=== PATIENT | male | born 1955 | race African-American/Black ===

== ENCOUNTER 2019-05-08 15:04 | Inpatient (IN) ==
--- NOTE | 2019-05-08 15:18 | PROVIDER DOCUMENTATION ---
HPI-Abdominal Pain/GI Problem - General Chief Complaint: Abdominal Pain Stated Complaint: CONSTIPATED OR BAD GAS Time Seen by Provider: 05/08/19 15:16 Source: patient Allergies/Adverse Reactions: Patient Allergies Allergy/AdvReac Type Severity Reaction Status Date / Time No Known Allergies Allergy Verified 05/08/19 15:36 Home Medications: Home Medication List Medication Instructions Recorded Confirmed Last Taken Type Furosemide [Lasix] 40 mg PO DAILY #30 tablet 03/23/14 05/08/19 04/15/18 Rx Carvedilol [Coreg] 25 mg PO BID #180 tablet 04/10/16 05/08/19 04/15/18 Rx Amlodipine [Norvasc] 15 mg PO DAILY 02/09/17 05/08/19 04/15/18 History Hydralazine [Apresoline] 50 mg PO DAILY 02/09/17 05/08/19 04/15/18 History - History of Present Illness-ABD Nature of Presenting Problems: Patient is a 63 yobm who complains of LLQ pain x 3-4 hours. Denies n/v/d, fever, or any other complaints. He is non-toxic in appearance. Review of Systems - Adult - REVIEW OF SYSTEMS - ADULT Constitutional: reports: no symptoms reported. denies: chills, fever Eyes: reports: no symptoms reported Ears, Nose, Mouth & Throat: reports: no symptoms reported Cardiovascular: reports: no symptoms reported Respiratory: reports: no symptoms reported Gastrointestinal: reports: see HPI Genitourinary: reports: no symptoms reported Musculoskeletal: reports: no symptoms reported Integumentary: reports: no symptoms reported Neurological: reports: no symptoms reported Psychiatric: reports: no symptoms reported Endocrine: reports: no symptoms reported Hematologic/Lymphatic: reports: no symptoms reported Allergic/Immunologic: reports: no symptoms reported All Other Systems: Reviewed and Negative Past History - Adult - PAST MEDICAL HISTORY-ADULT Review of Records: reports: Old Records Reviewed, Nursing Assessment Review, Medications Reviewed, Social history reviewed & non-contributory. Major Childhood Illnesses: reports: denies history Cardiovascular: reports: CAD, CHF, pacemaker Respiratory: reports: denies history Gastrointestinal: reports: denies history Obstetrical/Gynecological: reports: denies history Genitourinary: reports: denies history Musculoskeletal: reports: intervertebral disc disease Neurological: reports: CVA Endocrine/Immune: reports: denies history Other Conditions: reports: denies history - PRIOR SURGERIES/PROCEDURES Surgical/Procedure History: reports: cholecystectomy, pacemaker (AICD), back/neck - IMMUNIZATION STATUS Childhood Immunizations: See Nurse Assessment Flu Vaccine: See Nurse Assessment - FAMILY HISTORY Family History: reviewed, not pertinent - SOCIAL HISTORY Smoking: cigarettes, less than 1 pack/day Physical Exam-General - PHYSICAL EXAM-ADULT Initial Vital Signs Reviewed: Yes - CONSTITUTIONAL General Appearance: alert, mild distress. negative: lethargic, slow to respond - EYES Eyes: PERRL/EOMI - HEAD, EARS, NOSE, MOUTH & THROAT HENMT: normocephalic/atraumatic - NECK Neck: full range of motion, supple, normal inspection - RESPIRATORY Respiratory: chest non-tender, lungs clear, normal breath sounds, no pleuratic chest pain, no respiratory distress, no accessory muscle use - CARDIOVASCULAR Cardiovascular: regular rate, rhythm, no gallop, no murmur - GASTROINTESTINAL (ABDOMEN) Abdominal Exam: normal bowel sounds, soft, no organomegaly, no pulsatile mass, guarding (LLQ), tenderness (LLQ). negative: distended, rigid, rebound, hernia, mass - MUSCULOSKELETAL Back Exam: normal inspection, no CVA tenderness Extremity: normal range of motion, non-tender, normal gait, normal inspection - SKIN Integumentary: normal color, warm/dry. negative: cyanosis, diaphoresis, jaundice, mottled, pallor - NEUROLOGIC Neurologic: grossly normal, no motor/sensory deficits - PSYCHIATRIC Psych/Mental Status: normal mood/affect, normal thought content, normal thought process, oriented x 3 Progress - PLAN OF CARE/RESULTS Progress/Plan/Lab Results: Vital Signs - 8 hr 05/08/19 15:13 Temperature 96.0 F L Pulse Rate 56 L Respiratory Rate 18 Blood Pressure 167/103 O2 Sat by Pulse Oximetry 98 Result Diagrams: 05/08/19 15:51 05/08/19 15:51 - REASSESSMENT Reassessment #1 Time Reassessed: 18:08 Status: other (Waiting on CT report to dispo. Radiology inquiry made.) Reassessment #2 Time Reassessed: 18:40 Status: other (Reassessed pt, he is now diaphoretic and states he feels nauseated. States pain has improved. Discussed case with Dr. Canela who recommends HPS admission. Admitting HPS paged.) Reassessment #3 Time Reassessed: 19:14 Status: other (Urology paged per recommendation of Dr. Franklin.) - CT/MRI 1 CT Study: Abdomen, Pelvis ([facility] - [address], [address], [place] [address] [facility] - [address] , [place] [address] Department of Imaging Patient: POORNIMA BELTRÁN Date: 05/08/19#: [id number] : 5ADM Status: [facility]#: [id number] Ag e/Sex: 63/MRoom/Bed: Loc: ED Ordering Physician: Higinio Zhao Family Physician: Justin Hughes MD Reason for Procedure: LLQ pain/tenderness Signed EXAM: CT ABD/PELVIS W/IV CONT ONLY INDICATION: LLQ pain/tenderness TECHNIQUE: This exam was performed using automated exposure control, adjustment of mA or kV according to patient size, and/or use of iterative reconstruction technique. COMPARISON: 07/17/2018 FINDINGS: There is stable cardiomegaly. There is mild subsegmental atelectasis at the lung bases. There has been a prior cholecystectomy. The liver, spleen, and pancreas are grossly unremarkable. There is stable nodular thickening of the adrenal glands, statistically most likely due to underlying adenomas. There is very heterogeneous enhancement of the left kidney. There a re patchy segments of the left kidney where there is little if any enhancement. This suggests possible acute renal infarcts. However, there our portions of the left kidney where there is volume loss indicating that there are also chronic infarcts. Alternatively, it is possible that this represents pyelonephritis. However, there is no perinephric inflammatory stranding to support this. Please correlate with clinical exam. There is no hydronephrosis. There are a few miniscule gas droplets in the urinary bladder that are nonspecific and may be from recent catheterization. Urinary bladder wall does not appear to be significantly thickened. No focal bowel wall thickening or bowel obstruction is identified. The remainder of the GI tract is grossly unremarkable. There are shotty nonspecific borderline and mildly prominent periaortic lymph nodes at the upper abdomen and lower thorax. However, they are stable. There is no evidence of acute osseous abnormality. IMPRESSION: 1.Extremely heterogeneous enhancement associated with the left kidney, which may represent recent renal cortical infarcts. Pyelonephritis is another possibility. Please see above discussion. 2.Other incidental/nonacute findings detailed above. Electronically signed by John Bellamy 05/08/2019 6:16 PM 05/08/191815 Interpreting Physician: John Bellamy MD Dictated Date/Time: 05/08/191805 cc: Higinio Zhao; Justin Hughes MD) - CONSULTS/PCP/HOSPITALIST Notification #1 *Consult/PCP/Hospitalist*: KATELYN Webber Time Discussed: 19:13 Reason/Comments: admission- abdominal pain, poss. renal cortical infarct Consult Disposition: other (Recommends consulting urology for recommendations prior to admit.) #2 Consult: Dr. Norman Time Discussed: 19:28 Reason/Comments: possible renal cortical infarct vs. pyelo on CT, abdominal pain Consult Disposition: other (Recommends lactate level and if elevated, consulting general surgeon (if suspecting that vascular intervention is needed.)) #3 Consult: KATELYN Webber Time Discussed: 19:40 Reason/Comments: admission-abdominal pain Consult Disposition: Admit ( requests that I order coags. Coags ordered, Dr. Franklin to f/u on labs that are currently pending. Also spoke with KATELYN Rolle PYROTECHNIST who is aware of admission and pending labs.) Departure - Departure Date of Disposition Decision: 05/08/19 Time of Disposition Decision: 19:34 DIAGNOSIS: Abdominal pain Qualifiers: Abdominal location: left lower quadrant Qualified Code(s): R10.32 - Left lower quadrant pain Disposition: ADMITTED INPATIENT 09 Certified Medical Emergency: Emergent Condition: Stable Referrals and Follow-Ups: Justin Hughes MD [Primary Care Provider] - Discharge Education: Steps to Quit Smoking, [id number] - Critical Care Note This patient required my direct & personal management of CC.: No Attestation - Physician/ JAXSON Attestation Patient care was provided by Advanced Practice Provider:: Yes Advanced Practice Provider:: Higinio Zhao Advanced Practice Provider documentation review:: The Mid-level provider documentation, treatment plan and medical decision making was reviewed by the physician who agrees with all treatment and medical decision making by the MLP. The physician spent face to face time with patient:: No Advanced Practice Provider documentation review:: Supervising physician onsite and consulted in the evaluation and care of this patient. The physician did not have a face to face encounter with the patient.
[2019-05-08] MEDS ORDERED: ZOFRAN IV ONE (15:29)
[2019-05-08] MEDS ORDERED: MORPHINE IV ONE (15:29)
[2019-05-08 16:04] LABS: BASO# 0.01 X1000 (0.0-0.2); BASO% 0.2 % (0.0-0.8); EOS# 0.04 X1000 (0.0-0.7); EOS% 0.6 % (0.0-10.0); HEMATOCRIT 41.8 % (42.0-52.0); HEMOGLOBIN 13.7 g/dL (14.0-18.0); LYMPH# 1.24 X1000 (1.2-3.4); LYMPH% 20.1 % (20.5-51.1); MCH 26.7 PG (27-31); MCHC 32.8 g/dL (33-37); MCV 81.3 FL (81-99); MONO% 8.1 % (1.7-9.3); MPV 11.7 FL (7.4-10.4); NEUT# 4.39 X1000 (1.4-6.5); PLT 192 X1000 (130-400); RBC 5.14 XMIL (4.7-6.1); WBC 6.18 X1000 (4.8-10.8)
[2019-05-08 16:24] LABS: AGAP 10; ALB/GLOB RATIO 1.3; ALBUMIN 4.1 g/dL (3.5-5.0); ALKALINE PHOSPHATASE 92 U/L (32-122); AMYLASE 87 U/L (20-200); BUN 12 mg/dL (8-22); CALCIUM 8.9 mg/dL (8.8-10.2); CHLORIDE 101 mmol/L (98-107); COSMO 274; CREATININE 1.3 mg/dL (0.7-1.2); ESTIMATED GFR > 60; GLUCOSE 104 mg/dL (70-104); GOT 34 U/L (10-34); GPT 46 U/L (10-44); LIPASE 18 U/L (13-60); POTASSIUM 4.2 mmol/L (3.5-5.1); SODIUM 137 mmol/L (136-145); TCO2 26 mmol/L (25-35); TOTAL BILIRUBIN 0.29 mg/dL (0.20-1.00); TOTAL PROTEIN 7.3 g/dL (6.3-8.3)
[2019-05-08 17:05] LABS: URINE SOURCE CLEAN CATCH
[2019-05-08 17:12] LABS: BILIRUBIN URINE NEGATIVE (NEGATIVE); BLOOD URINE NEGATIVE (NEGATIVE); COLOR YELLOW; GLUCOSE URINE NEGATIVE (NEGATIVE); KETONE URINE NEGATIVE (NEGATIVE); LEUKOCYTES URINE NEGATIVE (NEGATIVE); NITRITE URINE NEGATIVE (NEGATIVE); PROTEIN URINE TRACE mg/dL (NEGATIVE); SP GRAVITY URINE 1.015; TURBIDITY URINE CLEAR (CLEAR); UROBILINOGEN URINE NORMAL (NORMAL)
[2019-05-08 17:13] LABS: UR EPITHELIAL CELLS <10 /HPF (<10); URINE BACTERIA NEGATIVE /HPF; URINE RBC <10 /HPF (<10); URINE WBC <10 /HPF (<10)
[2019-05-08] MEDS ORDERED: DILAUDID IV ONE (17:45)
--- NOTE | 2019-05-08 18:19 | Diag Imaging Result Doc PS360 ---
EXAM: CT ABD/PELVIS W/IV CONT ONLY INDICATION: LLQ pain/tenderness TECHNIQUE: This exam was performed using automated exposure control, adjustment of mA or kV according to patient size, and/or use of iterative reconstruction technique. COMPARISON: 07/17/2018 FINDINGS: There is stable cardiomegaly. There is mild subsegmental atelectasis at the lung bases. There has been a prior cholecystectomy. The liver, spleen, and pancreas are grossly unremarkable. There is stable nodular thickening of the adrenal glands, statistically most likely due to underlying adenomas. There is very heterogeneous enhancement of the left kidney. There are patchy segments of the left kidney where there is little if any enhancement. This suggests possible acute renal infarcts. However, there our portions of the left kidney where there is volume loss indicating that there are also chronic infarcts. Alternatively, it is possible that this represents pyelonephritis. However, there is no perinephric inflammatory stranding to support this. Please correlate with clinical exam. There is no hydronephrosis. There are a few miniscule gas droplets in the urinary bladder that are nonspecific and may be from recent catheterization. Urinary bladder wall does not appear to be significantly thickened. No focal bowel wall thickening or bowel obstruction is identified. The remainder of the GI tract is grossly unremarkable. There are shotty nonspecific borderline and mildly prominent periaortic lymph nodes at the upper abdomen and lower thorax. However, they are stable. There is no evidence of acute osseous abnormality. IMPRESSION: 1.Extremely heterogeneous enhancement associated with the left kidney, which may represent recent renal cortical infarcts. Pyelonephritis is another possibility. Please see above discussion. 2.Other incidental/nonacute findings detailed above. Electronically signed by John Bellamy 05/08/2019 6:16 PM
[2019-05-08] MEDS ORDERED: REGLAN IV ONE (18:52)
[2019-05-08 19:42] LABS: INR 1.14; PROTIME 14.8 Seconds (11.0-16.0)
[2019-05-08 19:43] LABS: PTT 32.6 Seconds (22.3-41.8)
[2019-05-08] MEDS ORDERED: HEPARIN 25,000 UNITS/D5W 25,000 UNIT/250 ML IV.SOLN IV SCH (20:00)
--- NOTE | 2019-05-08 20:41 | EKG Report ---
Test Performed on : 05/08/2019 6:55:26 PM Test Reason : abd pain Blood Pressure : / mmHG Vent. Rate : 072 BPM Atrial Rate : 072 BPM P-R Int : 168 ms QRS Dur : 110 ms QT Int : 404 ms P-R-T Axes : 062 -19 089 degrees QTc Int : 442 ms Sinus rhythm. with occasional premature ventricular complexes. Possible Left atrial enlargement Inferior infarct , age undetermined T wave abnormality, consider lateral ischemia Abnormal ECG When compared with ECG of 09-DEC-2018 07:10, premature ventricular complexes. are now present Unconfirmed Result
[2019-05-08] MEDS ORDERED: DILAUDID IV PRN (23:22)
[2019-05-08] MEDS: ZOFRAN IV PRN (23:50)
[2019-05-08] MEDS: ROCEPHIN 1 GM in NS 50 ML IV SCH (23:50)
[2019-05-08] MEDS: COREG PO SCH (23:51)
[2019-05-08] MEDS: NS 1,000 ML IV SCH (23:52)
--- NOTE | 2019-05-09 00:50 | HISTORY AND PHYSICAL ---
PRIMARY CARE PHYSICIAN: Dr. Justin Hughes. CHIEF COMPLAINT: Left flank pain x1 day. HISTORY OF PRESENTING ILLNESS: A 63-year-old male with a history of CHF, hypertension, stroke, who had presented to emergency department with a 1-day history of having left flank pain. The patient states that it was radiating to his abdomen and back. He was evaluated in the emergency department. He had imaging done which did show possible renal cortical infarct versus pyelonephritis. Due to his presenting symptoms, it was thought that he will require admission for further management. At the time of my examination, patient denied any headache, fever, chills, chest pain, shortness of breath or any weight changes, but complained of left flank pain. PAST MEDICAL HISTORY: Includes CHF, hypertension, stroke. PAST SURGICAL HISTORY: Cholecystectomy, defibrillator, left shoulder surgery, back surgery. ALLERGIES: No known drug allergies. CURRENT MEDICATIONS: Amlodipine 10 mg p.o. daily, carvedilol 25 mg p.o. b.i.d., Lasix 40 mg p.o. daily, hydralazine 50 mg p.o. daily. SOCIAL HISTORY: 40+ pack years history of smoking. He denies any alcohol use. Admits to illicit drug use in the past. FAMILY HISTORY: No history of coronary artery disease. REVIEW OF SYSTEMS: Fourteen point review of system as listed in HPI. Other systems negative. PHYSICAL EXAMINATION: GENERAL: Cooperative, friendly male. He is resting more comfortably now. VITAL SIGNS: Temperature 98.6 degrees, pulse 66, respirations 12, blood pressure 166/105. HEENT: Atraumatic, normocephalic. Extraocular movements intact. PERRLA. NECK: No masses. CHEST: Clear to auscultation. CARDIOVASCULAR: Regular rate and rhythm. ABDOMEN: Soft, positive bowel sounds. EXTREMITIES: Trace edema. BACK: There is left flank tenderness. GENITOURINARY: No bladder distention. SKIN: Warm. NEUROLOGIC: Nonfocal. LABORATORIES AND STUDIES: WBC 6.18, hemoglobin 13.7, hematocrit 41.8, platelets 192,000. Coagulation studies show INR of 1.14. Sodium 137, potassium 4.2, chloride 101, CO2 is 26, BUN is 12, creatinine 1.3, glucose is 104. Troponin 0.010. Plasma lactate 1.0. CT of the abdomen and pelvis shows recent renal cortical infarct versus pyelonephritis. ASSESSMENT: This is a 63-year-old male with a history of congestive heart failure, hypertension, stroke, who had presented to the emergency department with a 1-day history of left flank pain. The patient was evaluated the emergency department and he had imaging done which did show a possible renal cortical infarct versus pyelonephritis. Due to his presenting symptoms, patient will require admission for further management. 1. Left flank pain. 2. Possible renal cortical infarct. 3. Suspected pyelonephritis. 4. Congestive heart failure. 5. Hypertension. PLAN: 1. We will admit patient to PVC. 2. We will continue patient on a heparin drip. 3. We will check blood cultures. Start patient on IV antibiotics. 4. We will give patient adequate pain control. 5. We will consult Nephrology. 6. We will monitor blood pressure. Resume antihypertensive agent. 7. We will get an echocardiogram. 8. Patient will be on heparin drip and this will suffice for DVT prophylaxis. 9. We will continue to follow, and reassess and make further recommendation based on patient's clinical course. cc: Gus Franklin MD
[2019-05-09] MEDS: HEPARIN 25,000 UNITS/D5W 25,000 UNIT/250 ML IV.SOLN IV SCH ×2 (04:25→15:19)
[2019-05-09 06:07] LABS: BASO# 0.01 X1000 (0.0-0.2); BASO% 0.1 % (0.0-0.8); EOS# 0.02 X1000 (0.0-0.7); EOS% 0.3 % (0.0-10.0); HEMOGLOBIN 12.8 g/dL (14.0-18.0); LYMPH# 1.18 X1000 (1.2-3.4); LYMPH% 15.3 % (20.5-51.1); MCH 26.9 PG (27-31); MCHC 32.8 g/dL (33-37); MCV 82.1 FL (81-99); MONO# 0.63 X1000 (0.11-0.59); MONO% 8.2 % (1.7-9.3); MPV 12.5 FL (7.4-10.4); NEUT# 5.86 X1000 (1.4-6.5); NEUT% 76.1 % (42.2-75.2); PLT 155 X1000 (130-400); RBC 4.75 XMIL (4.7-6.1); RDW 14.9 % (11.5-14.5)
[2019-05-09] MEDS: ZOFRAN IV PRN ×2 (06:22→10:29)
[2019-05-09 06:46] LABS: AGAP 14; BUN 11 mg/dL (8-22); CALCIUM 8.6 mg/dL (8.8-10.2); CHLORIDE 103 mmol/L (98-107); COSMO 277; CREATININE 1.1 mg/dL (0.7-1.2); ESTIMATED GFR > 60; GLUCOSE 142 mg/dL (70-104); SODIUM 138 mmol/L (136-145); TCO2 21 mmol/L (25-35)
--- NOTE | 2019-05-09 09:25 | CONSULTATION ---
DATE OF CONSULTATION: 05/09/2019 CHIEF COMPLAINT: Left flank pain. HISTORY OF PRESENT ILLNESS: Mr. Varghese is a 63-year-old who presented to the emergency room yesterday complaining of left flank pain for approximately 1 day. The patient has a history of atrial fibrillation, congestive heart failure, hypertension, stroke, implantable defibrillator device. The patient states that approximately 1 day ago, he began having left flank pain that radiated to his abdomen and back. He came to the emergency room and had a CT scan performed, which showed concern for possible pyelonephritis versus cortical infarcts related to thrombotic events. The patient has a history of significant heart failure with implantable defibrillator device. He says it has never gone off, and he previously was on anticoagulation for atrial fibrillation. However, he thought he was still on something, and was previously on Coumadin, but denies taking any other blood thinners, and he is not sure when he stopped taking his Coumadin. The patient denies significant pain today. He denies any fevers, chills, nausea, or vomiting. Denies any chest pain or shortness of breath. The patient had an EKG in the emergency room, which showed normal rate and rhythm. Creatinine was 1.3, with a white blood cell count of 7.7. The patient's lactate was 1. Patient has occasional nocturia 1-2 times nightly. He denies dysuria, hematuria, urgency or frequency. No family history of prostate cancer. Denies personal history of kidney stones. PAST MEDICAL HISTORY: 1. Congestive heart failure. 2. Hypertension. 3. History of stroke. 4. Chronic atrial fibrillation. PAST SURGICAL HISTORY: 1. Cholecystectomy. 2. Defibrillator. 3. Left shoulder surgery. 4. Back surgery. ALLERGIES: No known drug allergies. MEDICATIONS: 1. Amlodipine 10 mg p.o. daily. 2. Carvedilol 25 mg p.o. b.i.d. 3. Lasix 40 mg p.o. daily. 4. Hydralazine 50 mg daily. SOCIAL HISTORY: Chronic smoker with a 20-hnoe-qunq history. Denies alcohol or illicit drug use currently. FAMILY HISTORY: Denies family history of malignancy or kidney stones. REVIEW OF SYSTEMS: A 12-point review of systems was performed with all pertinent positives and negatives in the HPI. PHYSICAL EXAMINATION: Vital Signs: Temperature 98 degrees, heart rate 53, blood pressure 155/90, oxygen saturation 96% on room air. General: No acute distress. Resting comfortably in bed. Alert and oriented x3. Neck: Trachea midline. No palpable masses. HEENT: Normocephalic, atraumatic. Pupils equal, round, reactive to light. Respiratory: Good respiratory effort, without audible wheezing or rales. Cardiovascular: Regular rate and rhythm. Abdomen: Soft, nontender, nondistended. No palpable masses or hepatosplenomegaly. : No suprapubic tenderness. No CVA tenderness. Normal phallus. Bilateral testicles palpated without masses or asymmetry. No palpable hernias. Rectal: Digital rectal exam showed an approximate 30-gram prostate with no nodules or firmness. Extremities: Moving all extremities. There is 1+ lower extremity edema. Skin: No obvious skin lesions or rashes. Neurologic: Grossly motor and sensory intact. LABORATORY DATA: White blood cell count 7.7, hemoglobin 12.8, hematocrit 39.0, platelets 155,000. Sodium 138, potassium 4.0, chloride 103, bicarb 23, BUN 11, creatinine 1.1, glucose 142, calcium 8.6. Pro-B natriuretic peptide 1535. Lactate 1.0. Urinalysis showed no evidence of blood, leukocytes, or bacteria. IMAGING: CT abdomen and pelvis images reviewed, which showed several delayed nephrograms on the left kidney, concerning for pyelonephritis versus cortical infarcts. The patient has multiple cortical changes to the kidney, most prominent in the lower pole of the kidney. No obvious hydronephrosis, renal mass, or nephrolithiasis seen. The patient had significant enlargement of his heart, which measures greater than 50% of the total chest volume, with implantable defibrillator device leads visualized. ASSESSMENT AND PLAN: Mr. Varghese is a 63-year-old with a history of congestive heart failure, hypertension, history of stroke, and chronic atrial fibrillation, who presents in consultation regarding possible left cortical infarcts. The patient had an acute episode of pain on the left side, with CT scan showing what appears to be delayed nephrogram with no stranding around the kidney. Concern arises that the patient had embolic events leading to changes in blood supply to the left kidney. The patient currently denies any pain. Uncertain if he developed embolic events that have now resolved. The patient was started on heparin drip for dilution of blood clots. The patient has a history of CHF, as well as chronic atrial fibrillation on no anticoagulation. The patient has been followed by Dr. Schultz previously, and likely needs to be on chronic anticoagulation due to his atrial fibrillation and congestive heart failure with implantable device. I do not think this is infection as his WBC count is normal and his urinalysis shows no evidence of bacteria, blood, or inflammatory cells. The patient's renal function has improved today to 1.1 from 1.3 yesterday. From a urologic standpoint, no acute intervention is necessary. Uncertain if the patient may benefit from future angiography to assess for renal artery stenosis by General Surgery, but from a urologic standpoint, no obvious hydronephrosis, renal mass, or nephrolithiasis is seen. The patient denies any voiding complaints today, and his urine has been clear yellow with no blood or leukocytes present. Will continue to monitor from a urologic standpoint. cc: Shemar Norman MD MTDD
[2019-05-09] MEDS: COREG PO SCH ×2 (09:40→20:38)
[2019-05-09] MEDS: NORVASC PO SCH (09:46)
[2019-05-09] MEDS: APRESOLINE PO SCH (09:47)
[2019-05-09] MEDS: NS 1,000 ML IV SCH (10:29)
[2019-05-09] MEDS: TYLENOL PO PRN ×3 (10:29→23:24)
--- NOTE | 2019-05-09 13:22 | Diag Imaging Result Doc PS360 ---
EXAM: US RENAL 2 (RETROPER) COMPLETE INDICATION: kidney infarct TECHNIQUE: COMPARISON: None. FINDINGS: The contour of the left kidney is somewhat lobulated as compared to the right this could indicate prior renal cortical infarct. However, both kidneys do exhibit Doppler flow at the naldo. There is no hydronephrosis and no renal mass identified. Both kidneys measure 11.8 cm in the greatest longitudinal axes. Right renal cortex measures up to 1.1 cm and the left renal cortex measures up to 1 cm in thickness. Urinary bladder is grossly unremarkable. IMPRESSION: Somewhat lobulated left renal contour as compared to the right as described. Please see above discussion. Electronically signed by John Bellamy 05/09/2019 1:20 PM
--- NOTE | 2019-05-09 19:02 | PROGRESS NOTE ---
DATE: 05/09/2019 SUBJECTIVE: This patient is still complaining of some left flank pain, but much better compared with this morning or yesterday. He had a CT of the abdomen that showed an extremely heterogenous enhancement associated with the left kidney which may represent recent renal cortical infarcts. Pyelonephritis is another possibility. Renal ultrasound showed a lobulated left renal contour as compared with the right. This could indicate prior renal cortical infarct. I have requested an arterial blood flow ultrasound, pending results at this moment. This patient has a paced past medical history of CHF. His last echocardiogram was done on 08/04/2018, and showed an estimated left ejection fraction of 35% in the setting of global hypokinesis. The right ventricle is grossly normal in size with preserved right ventricular systolic function. He does have a history of a stroke in 2009 and seizures. He was seen by Dr. Sutherland at that time. He has a history of hypertension, hyperlipidemia. Per Cardiology report before, the patient was found to have atrial flutter a few years ago and he was cardioverted, he was given, at some point, and AICD for prophylaxis of sudden and after that he developed, at some point, a DVT at the level of the left upper extremity. As per the patient, he was on Coumadin as well. Also, he has a history of depression and suicide attempt that required that required admission to [facility]. OBJECTIVE: Vital Signs: Temperature 100, pulse 62, respiratory rate 13, blood pressure 155/102, oxygen saturation 96 on room air. HEENT: Head normocephalic, no trauma PERRLA. Neck: Supple. No JVD. No masses. Central trachea. Chest: Clear to auscultation. No wheezing. No rales. He does have some eschar. One of them in the middle of the chest which are chronic, but no signs of infection. Abdomen: Soft. Some tenderness to palpation at the level of the periumbilical area and left flank. Extremities: No edema, no clubbing, no cyanosis. Neurological: The patient is alert and oriented x3. No focal deficits. LABORATORY: WBC 7.7, hemoglobin 12.8, hematocrit 39, platelets 155,000. Sodium 138, potassium 4, chloride 103, bicarbonate 21, BUN 11, creatinine 1.1, glucose 142, calcium 8.6, magnesium 1.8. ASSESSMENT AND PLAN: 1. Left flank pain with possible renal cortical infarct. This has been demonstrated in the abdomen CT scan as well as the renal ultrasound. At this moment, I am waiting for the renal arterial flow ultrasound to see if he has any issues with that. Urology department already evaluated this patient. His creatinine actually is better today compared with yesterday, and his pain is much better as well. He has been placed on a heparin drip and I will continue with that. Tomorrow, hopefully, I will discuss the case with his primary dish maker or the dish maker on-call to see if he needs to be on chronic anticoagulation, which I believe we need to consider that. 2. History of congestive heart failure with an ejection fraction of 35%. I will ask for a new echocardiogram to be done in the morning to see his ejection fraction and also to rule out any kind of clots inside the heart, we will probably need to consider I and D if we have some images suspicious for blood clot. 3. History of stroke. No symptoms at this moment. We will continue to monitor. 4. Hypertension, stable. Continue with same management. I will start this patient on a diet and I will stop the IV fluids at this moment. He seems to be hydrated. 5. Remote history of atrial flutter and apparently this patient was cardioverted at the that time. I will let the Cardiology Department to decide if this patient needs to be on anticoagulation or not, but I believe he should be on blood thinners. Tomorrow, we will try to ask his primary dish maker about these or we will ask the Rolling Attendant on board about chronic anticoagulation in this patient. He is rate is controlled. I will also ask for a for an EKG in the morning. 6. Previous history of deep vein thrombosis on his left upper extremity after an automated implantable cardioverter-defibrillator placement, aware. He is no longer on anticoagulation at this moment. No signs of deep venous thrombosis in that arm at this moment. 7. Previous history of stroke and seizures in 2009, followed by Dr. Sutherland at that time. Aware. 8. The patient seems to be stable. He is complaining of some pain at the level of the left flank, but compared with yesterday, it is much better. I discussed briefly the case with the surgeon, Dr. Mustafa. At this moment, the renal arterial ultrasound is pending. We will contact him to discuss the results. Also, we will try to get the primary dish maker or the Cardiology on board to discuss anticoagulation and further treatment, I will get a new echocardiogram and also an EKG in the morning. cc: Ben Henderson MD
--- NOTE | 2019-05-09 20:16 | Diag Imaging Result Doc PS360 ---
EXAM: US DUPLEX RENAL ARTY/VEIN LMTD INDICATION: Blood flow TECHNIQUE: COMPARISON: Standard renal ultrasound performed earlier today. FINDINGS: Note that this study is somewhat limited as the patient was in pain and was unable to maintain adequate breath-hold. The aortic peak systolic velocity just proximal to the renal arteries is 83 cm/s Right: The peak systolic velocity measures 10, 42, and 35 cm/s at the proximal, mid, and distal right renal artery. The upper segmental artery is obscured. The peak systolic velocity measures 24.8 and 13.8 cm/s at the mid and lower segmental arteries. The right renal artery ratio is 1.97. The resistive index is 0.68. Left: The peak systolic velocity measures 59 and 41 cm/s at the proximal and mid left renal artery. The distal left renal artery was not well visualized. The upper and lower segmental arteries were not well visualized. The mid segmental artery peak systolic velocity is 22 cm/s. The left renal artery ratio is 1.4. The resistive index is 0.75. IMPRESSION: 1.Somewhat limited study for the reasons discussed above. 2.Borderline elevated left resistive index. Electronically signed by John Bellamy 05/09/2019 8:13 PM
[2019-05-09] MEDS: ROCEPHIN 1 GM in NS 50 ML IV SCH (23:21)
[2019-05-10] MEDS: HEPARIN 25,000 UNITS/D5W 25,000 UNIT/250 ML IV.SOLN IV SCH ×3 (00:46→16:07)
[2019-05-10 06:40] LABS: AGAP 10; BUN 10 mg/dL (8-22); CHLORIDE 101 mmol/L (98-107); COSMO 269; CREATININE 1.3 mg/dL (0.7-1.2); ESTIMATED GFR > 60; GLUCOSE 125 mg/dL (70-104); POTASSIUM 3.8 mmol/L (3.5-5.1); SODIUM 134 mmol/L (136-145); TCO2 23 mmol/L (25-35)
--- NOTE | 2019-05-10 07:28 | EKG Report ---
Test Performed on : 05/10/2019 06:54:21 AM Test Reason : Bradycardia Blood Pressure : / mmHG Vent. Rate : 065 BPM Atrial Rate : 065 BPM P-R Int : 162 ms QRS Dur : 106 ms QT Int : 402 ms P-R-T Axes : 076 -37 155 degrees QTc Int : 418 ms Normal sinus rhythm. Left axis deviation Left ventricular hypertrophy with repolarization abnormality Abnormal ECG When compared with ECG of 08-MAY-2019 18:55, (Unconfirmed) premature ventricular complexes. are no longer present Criteria for Inferior infarct are no longer present Confirmed by Franco ARCHIBALD, P.J.M ([id number]) on 05/10/2019 6:32:38 PM
[2019-05-10] MEDS: APRESOLINE PO SCH (08:24)
[2019-05-10] MEDS: COREG PO SCH ×2 (08:24→20:11)
[2019-05-10] MEDS: NORVASC PO SCH (08:24)
[2019-05-10] MEDS: TYLENOL PO PRN ×2 (08:27→19:05)
--- NOTE | 2019-05-10 10:13 | ECHO REPORT ---
ORDER DATE: 05/08/2019 INDICATION: CHF. FINDINGS: 1. Right atrium appears enlarged. Linear artifact consistent with device leads is noted in the right heart chambers. 2. Mild tricuspid regurgitation. The RV systolic pressure is 79, suggesting pulmonary hypertension. 3. Right ventricle is enlarged with moderate reduction in RV systolic function. 4. No significant pulmonic insufficiency. 5. Severe left atrial enlargement with a dimension of 6.4 cm, volume index of 75. 6. No mitral valve prolapse. Mild mitral regurgitation. 7. Dilated left ventricle with an end-diastolic dimension of 6.3. Moderate left ventricular hypertrophy with a posterior and interventricular septal wall thickness 1.4 and 1.5 cm respectively. Severe reduction in LV systolic function with estimated EF of 20 to 25 percent with global hypokinesis. 8. Aortic valve opens well. It is trileaflet. No evidence of stenosis or insufficiency. 9. Aorta appears normal in visualized segments. 10. No pericardial effusion identified. cc: MD Gus Tan MD
--- NOTE | 2019-05-10 14:14 | PROGRESS NOTE ---
DATE: 05/10/2019 SUBJECTIVE: This morning Mr. Varghese referred to be doing well denies any new complaints. Still has some pains especially to the left side. OBJECTIVE: Vital signs: Blood pressure is 119/61, pulse of 50, respiration is 20, temperature is 98.3 degrees. General: Mr. Varghese 63-year-old gentleman he is in bed no distress. Mucosa is pink and moist. Anicteric, acyanotic. Neck: Supple. Chest: Clear to auscultation. No crepitations, no rhonchi. Cardiovascular: Regular rate and rhythm. Abdomen: Soft, minimally tender in the left side. Bowel sounds are present. Extremities: No pedal edema. [employer]: Patient is awake, alert, and oriented. LABORATORY DATA: Has been reviewed, CBC from yesterday was unremarkable except for normocytic anemia. The chemistry this morning shows creatinine 1.3. CURRENT MEDICATIONS: Have also been reviewed. ASSESSMENT: 1. 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 2. History of atrial flutter /atrial fibrillation. 3. Remote embolic stroke associated with seizures in 2009. 4. History of coronary artery disease, patient is status post defibrillator placement. 5. Ischemic heart disease with ejection fraction of 56% on the previous echocardiogram in 2016. So in general I think Mr. Varghese is doing okay. He is currently on heparin drip which we are going to transition to oral anticoagulation pending cardiology recommendations. He has a history of atrial fibrillation/atrial flutter. His EKGs during the hospital course have all been normal sinus rhythm. There is some T-waves inversion especially in the lateral leads mainly consistent with repolarization abnormality from left ventricular hypertrophy. Will get Cardiology to evaluate Mr. Varghese and advise on oral anticoagulation switch. cc: Vishal Virk MD [facility]
--- NOTE | 2019-05-10 15:35 | PROGRESS NOTE ---
DATE: 05/10/2019 SUBJECTIVE: No acute events overnight. The patient's pain seems to be better controlled. Denies any nausea or vomiting. The patient had a T-max of 100.8 degrees last night. He has been afebrile today. States his pain is better controlled. Denies any fevers, nausea or vomiting. The patient has been on heparin drip within normal limits for monitoring of his anticoagulation. OBJECTIVE: Vital Signs: Temperature 98.3 degrees, heart rate 58, blood pressure 119/61, oxygen saturation 95% on room air. General: No acute distress. Resting comfortably in bed. Alert and oriented x3. Abdomen: Soft, nontender, nondistended. No palpable masses. Respiratory: Good respiratory effort without audible wheezing or rales. LABS: White blood cell count 7.7, hemoglobin 12.8, hematocrit 39.0, platelets 155. Sodium 134, potassium 3.8, chloride 101, bicarbonate 23. BUN 10, creatinine 1.3, glucose 125. IMAGING: Duplex renal ultrasound showed slightly elevated left renal resistive indices with good blood supply to both kidneys, likely related from prior embolizations from blood clots. ASSESSMENT AND PLAN: Mr. Varghese is a 63-year-old with congestive heart failure, hypertension, history of cerebrovascular accident, chronic atrial fibrillation, who presents in follow-up regarding left renal cortical infarcts from blood clots. The patient's pain seems to be better controlled today. The patient has been on a heparin drip. He has a Cardiology consultation for transition to oral anticoagulation. It sounds like he previously was on Coumadin and subsequently stopped taking it at some point. The patient has had prior echocardiogram, as well as renal ultrasound. Renal ultrasound shows slight lobular appearance of both kidneys and slightly elevated resistive indices with good blood supply to both kidneys. I think patient had lower pole infarction of his kidney, and has had relatively stable renal function with creatinine 1.3 from 1.3 on admission. Denies any flank or abdominal pain today. Stable vital signs. Would continue anticoagulation and transition per Cardiology's recommendations. From a urologic standpoint, no other interventions are necessary at this time. Please call with questions or concerns. cc: MD MOODY Roberts
[2019-05-10] MEDS: MIRALAX PO SCH (15:51)
--- NOTE | 2019-05-10 22:29 | CARDIOLOGY CONSULTATION ---
DATE: 05/10/2019 CONSULTATION REQUESTED BY: Hospitalist service. REASON FOR CONSULTATION: Patient with possible embolism to the left renal artery. HISTORY: Mr. Varghese is a 63-year-old black gentleman who is known to our service. He follows regularly with Dr. Schultz. The patient presented on May 08 to the ER with severe flank pain. This has been going on for several days. Scans of the abdomen were done on May 08 and that shows extremely heterogeneous enhancement associated with the left kidney which may represent recent renal cortical infarcts, although, pyelonephritis is another possibility. Of note, his urine has not shown any indication of inflammation or blood. The patient, otherwise, has no change in his overall cardiac status. No more chest pain than usual. No more swelling than usual. No palpitations or syncope. His AICD has not fired. PAST HISTORY: Positive for a dilated nonischemic cardiomyopathy. He has chronic congestive heart failure. He has had atrial flutter in the past and has required cardioversion. In 2009, he has suffered a stroke and apparently in 2011 or 2012 while he was in [place], he had another embolic stroke. For a short period of time, he was on Coumadin. However, he proved to be totally noncompliant with a very unhealthy lifestyle and his former audit specialist discontinued the anticoagulation. He has hyperlipidemia. SURGICAL HISTORY: He had a cholecystectomy and implantation of AICD. He has had a possible left arm deep venous thrombosis, left shoulder surgery and back surgery in the past. SOCIAL HISTORY: He is single. He is disabled. He lives at home. He has children. He has been a smoker for many years. Right now, he says that he is smoking about less than half a pack of cigarettes a day. However, due to a recent stressful situation at home with his son, he started smoking again. He drinks about 3 beers over the past 2 weeks. FAMILY HISTORY: Noncontributory. ALLERGIES: Negative. HOME MEDICATIONS: Reported at this time included amlodipine 10 mg daily, carvedilol 25 twice a day, furosemide 40 mg daily, hydralazine is 50 mg daily. REVIEW OF SYSTEMS: Other than chronic limitation to perform physical activity, it is really noncontributory besides the new onset of left flank pain. PHYSICAL EXAMINATION: Vital signs: Blood pressure 119/61, temperature 98.3 degrees, pulse 58, respirations 15. General: He is awake, well-developed, in no distress. HEENT: Slightly prominent jugular veins. Chest: Diminished breath sounds diffusely. Heart: Sounds regular and rhythmic. I do not hear a gallop or murmur. Abdomen: Nontender, soft. There is tenderness over the left flank. Bowel sounds are diminished. Extremities: Showed palpable pulses. No edema. Neurological: Nonfocal. Moves 4 extremities. EKG: A 12-lead EKG shows sinus rhythm with left axis deviation, left ventricular hypertrophy, diffuse repolarization abnormality. LABORATORY WORK: Chemistry: Sodium 134, potassium 3.8, BUN 10, creatinine 1.3. Hemoglobin is 12.8, hematocrit 39%. Platelet count is a 155,000. IMPRESSION: 1. Patient who presents to the hospital with left flank pain and CT imaging suggestion of renal infarct. This may represent recurrent embolism from a cardiac source. 2. Dilated nonischemic cardiomyopathy/chronic systolic heart failure, functional class 3. 3. History of hypertension. 4. History of stroke in the past. 5. History of implantation of AICD device. RECOMMENDATION: At this time, we will recommend initiation of long-term anticoagulation with either Eliquis or Xarelto. Whichever of those 2 is more affordable should be used. The patient is really not a reliable candidate for snf Coumadin due to lack of compliance. That has been tried before. Otherwise, the patient can be discharged at the earliest convenience of the primary service. He will follow up with his usual audit specialist , Dr. Schultz and his primary physician Dr. Justin Hughes. cc: Miquel Chavira MD [facility]
[2019-05-10] MEDS: ROCEPHIN 1 GM in NS 50 ML IV SCH (23:59)
[2019-05-11] MEDS: HEPARIN 25,000 UNITS/D5W 25,000 UNIT/250 ML IV.SOLN IV SCH (05:57)
[2019-05-11 06:41] LABS: HEMATOCRIT 36.6 % (42.0-52.0); HEMOGLOBIN 12.2 g/dL (14.0-18.0); MCH 27.2 PG (27-31); MCHC 33.3 g/dL (33-37); MCV 81.7 FL (81-99); MPV 13.2 FL (7.4-10.4); RBC 4.48 XMIL (4.7-6.1); RDW 14.9 % (11.5-14.5); WBC 11.27 X1000 (4.8-10.8)
[2019-05-11 06:56] LABS: AGAP 12; ALBUMIN 3.4 g/dL (3.5-5.0); BUN 11 mg/dL (8-22); CALCIUM 8.3 mg/dL (8.8-10.2); CHLORIDE 102 mmol/L (98-107); COSMO 276; CREATININE 1.3 mg/dL (0.7-1.2); ESTIMATED GFR > 60; GLUCOSE 117 mg/dL (70-104); POTASSIUM 3.8 mmol/L (3.5-5.1); SODIUM 138 mmol/L (136-145); TCO2 24 mmol/L (25-35)
[2019-05-11] MEDS: NORVASC PO SCH (08:29)
[2019-05-11] MEDS: MIRALAX PO SCH (08:29)
[2019-05-11] MEDS: COREG PO SCH (08:29)
[2019-05-11] MEDS: APRESOLINE PO SCH (08:29)
[2019-05-11] MEDS ORDERED: ELIQUIS PO SCH (09:00)
[2019-05-11 11:38] VITALS: BP 133/80
--- NOTE | 2019-05-12 15:02 | DISCHARGE SUMMARY ---
ADMISSION DATE: 05/08/2019 DISCHARGE DATE: 05/11/2019 DISPOSITION: Home. FOLLOW-UP: 1. Dr. Justin Hughes. 2. Dr. Yakov Duarte. CONSULTATIONS DURING THIS ADMISSION: 1. Urology was consulted. Patient was seen by Dr. Norman. 2. Cardiology was consulted. Patient was seen by Dr. Chavira. ADMISSION DIAGNOSES: 1. Left flank pain. 2. Possible renal cortical infarct. 3. Suspected pyelonephritis. 4. Congestive heart failure. 5. Hypertension. DIAGNOSES AT THE TIME OF DISCHARGE: 1. 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 2. History of atrial flutter/atrial fibrillation. 3. Remote embolic stroke associated with seizures in 2009. 4. History of coronary artery disease status post automatic implantable cardioverter defibrillator. 5. Ischemic heart disease with ejection fraction of 56 on previous echocardiogram. Now, ejection fraction is 20 to 25 percent with global hypokinesis. 6. Hypertension. DISCHARGE MEDICATIONS: 1. Furosemide 40 mg p.o. daily. 2. Carvedilol 25 b.i.d. 3. Hydralazine 50 mg daily. 4. Amlodipine 10 mg p.o. daily. 5. MiraLAX. 6. Eliquis 5 mg b.i.d. IMAGING STUDIES OF SIGNIFICANCE: 1. A CT scan of the abdomen and pelvis with and without IV contrast showed extremely heterogeneous enhancement associated with left kidney which may represent recent renal cortical infarcts. Perinephritis is a possibility. 2. An echocardiogram done shows an ejection fraction of 20 to 25 percent with global hypokinesis. 3. A renal ultrasound showed some lobulated left renal contour. 4. A renal duplex ultrasound showed limited studies borderline elevated left resistive index. PRESENTING COMPLAINT: Left flank pain. HISTORY OF PRESENTING COMPLAINT: Mr. Varghese, a 63-year-old gentleman, presented to the emergency department because of acute onset of left flank pain. The patient was evaluated, including a CAT scan which revealed recent infarct to the left kidney. Mr. Varghese was started on IV anticoagulation and was admitted to the cardiac floor. HOSPITAL COURSE: Mr. Varghese was seen by Urology, Dr. Norman, who recommended medical management. Cardiology was also consulted. Dr. Chavira evaluated the patient and suggested that the renal infarct was most likely due to a cardioembolic phenomena and that the patient needed to be on lifelong oral anticoagulation. Mr. Varghese continued to be fairly stable during the hospital course. The left abdominal pain improved. He was switched to oral Eliquis. Social Work and Case Management were all consulted for medication assistance. This morning Mr. Varghese refers to be doing a whole lot better. No more abdominal pain. His vitals are stable. Blood pressure is 133/80, pulse of 57 respiration is 19. He is medically stable for discharge. He is going to be following up with Dr. Hughes and Dr. Schultz. All the discharge instructions have been discussed with Mr. Varghese including the new anticoagulant side effects and precautions with regards to using sharp objects and razors while he has been on anticoagulation. He has been advised to seek immediate medical attention if he sees any bleeding in his stool as well. All the discharge instructions have been discussed with him, and he voiced understanding. TIME SPENT FOR DISCHARGE: 38 minutes. cc: Vishal Virk MD
== END 2019-05-11 12:50 | disposition home or self-care (01) ==
LOC: ED 15:04 → SUATTDRO 22:09 → 2N 22:09
PROVIDERS: ATTEND Internal Medicine